=== PATIENT | female | born 1955 | race Two or more races ===

== ENCOUNTER 2018-11-09 10:26 | Emergency (ER) | payer MEDICARE, OTHER ==
[~2018-11-09] VITALS: Ht 152.4 cm; Wt 52.6 kg
[~2018-11-09 10:26] MED LIST: AMLODIPINE BESYL5 MG ORAL; ASPIRIN-LOW81 MG ORAL; CALCIUM600 M1 PO; CYCLOBENZAPRINE10 MG ORAL; LOFIBRA67 MG ORAL; PREMARIN VAG CR45 GM PV; SIMVASTATIN20 MG ORAL; TYLENOL650 MG/20. ORAL
[2018-11-09 11:23] VITALS: BP 130/59
[2018-11-09 12:37] LABS: BASOPHILS % (AUTO) 1.2 % (0.0-2.0); EOSINOPHILS % (AUTO) 2.9 % (0.0-3.0); HEMATOCRIT 32.9 % (37.0-47.0); HEMOGLOBIN 10.9 G/DL (12.0-16.0); LYMPHOCYTES % (AUTO) 29.2 % (20.0-45.0); MEAN CORPUSCULAR VOLUME 86 FL (80-99); MONOCYTES % (AUTO) 7.4 % (1.0-10.0); NEUTROPHILS % (AUTO) 59.3 % (45.0-75.0); PLATELET COUNT 249 K/UL (150-450); RED BLOOD COUNT 3.84 M/UL (4.20-5.40); RED CELL DISTRIBUTION WIDTH 12.8 % (11.6-14.8); WHITE BLOOD COUNT 5.4 K/UL (4.8-10.8)
[2018-11-09 12:44] LABS: ANION GAP 11 mmol/L (5-15); BLOOD UREA NITROGEN 15 mg/dL (7-18); CALCIUM 8.6 MG/DL (8.5-10.1); CARBON DIOXIDE 23 MMOL/L (21-32); CHLORIDE 106 MMOL/L (98-107); CREATININE 0.8 MG/DL (0.55-1.30); POTASSIUM 4.3 MMOL/L (3.5-5.1); SODIUM 140 MMOL/L (136-145)
[2018-11-09 12:49] LABS: ALANINE AMINOTRANSFERASE 29 U/L (12-78); ALBUMIN 3.2 G/DL (3.4-5.0); ALBUMIN/GLOBULIN RATIO 0.9 (1.0-2.7); ALKALINE PHOSPHATASE 84 U/L (46-116); ASPARTATE AMINO TRANSFERASE 22 U/L (15-37); BILIRUBIN,TOTAL 0.5 MG/DL (0.2-1.0)
[2018-11-09 13:24] VITALS: BP 135/56
--- NOTE | 2018-11-09 13:31 | Emergency Room Report ---
History of Present Illness General Chief Complaint: Multiple Trauma/Fall Source: Patient Present Illness HPI This patient states that she tripped and fell yesterday while she was out shopping around 3 PM yesterday afternoon. She states that she cut her hand on some glass. She did not get evaluated at that time. She states that she also has pain in her knees. She states that her tetanus shot is up-to-date. She denies head injury or trauma. She denies neck pain or chest pain. She denies abdominal pain. She denies back pain. She has no other complaints. Allergies: Coded Allergies: ACETAMINOPHEN (Verified Allergy, Mild, Itching, 11/09/18) IBUPROFEN (Verified Allergy, Unknown, Itching, Dizziness, 11/09/18) Patient History Past Medical History: see triage record, HTN, GERD Past Surgical History: hysterectomy, other - L. nephrectomy Social History: Denies: smoking, alcohol use, drug use Last Menstrual Period: na Reviewed Nursing Documentation: PMH: Agreed; PSxH: Agreed Nursing Documentation-PMH Past Medical History: No History, Except For Hx Cardiac Problems: Yes - anemia Hx Hypertension: Yes Hx Cancer: Yes - uterine Hx Gastrointestinal Problems: Yes - fatty liver Review of Systems All Other Systems: negative except mentioned in HPI Physical Exam Vital Signs Date Time Temp Pulse Resp B/P (MAP) Pulse Ox O2 Delivery O2 Flow Rate FiO2 11/09/18 10:47 98.1 75 18 134/66 98 Room Air Sp02 EP Interpretation: reviewed, normal General Appearance: no apparent distress, alert, GCS 15, non-toxic Head: normocephalic, atraumatic Eyes: bilateral eye normal inspection, bilateral eye PERRL ENT: hearing grossly normal, normal pharynx, no angioedema, normal voice Neck: full range of motion, supple/symm/no masses Respiratory: chest non-tender, lungs clear, normal breath sounds, no respiratory distress, no retraction, no accessory muscle use, speaking full sentences Cardiovascular #1: regular rate, rhythm, no edema Gastrointestinal: normal bowel sounds, non tender, soft, non-distended, no guarding, no rebound Rectal: deferred Musculoskeletal: back normal, normal range of motion, other - Bilateral knees ttp. No deformity, ecchymosis or joint effusion identified. Neurologic: alert, oriented x3, responsive, motor strength/tone normal, sensory intact, speech normal Psychiatric: judgement/insight normal, memory normal, mood/affect normal, no suicidal/homicidal ideation Skin: normal color, no rash, warm/dry, well hydrated Medical Decision Making Diagnostic Impression: Primary Impression: Fall Additional Impression: Laceration of hand ER Course This patient suffered a mechanical fall. She has a laceration on her right hand. This laceration is almost 24 hours old. The hand has a high infection rate and has a very poor outcome if it does become infected. Therefore, I will not close this wound. I will let the wound heal by secondary intention. I will treat the patient with a course of antibiotics for prophylaxis. The wound was irrigated and bacitracin was applied. The patient was placed in a splint to allow wound healing. There is no evidence of foreign body on exam or on x- ray. There is no evidence of fracture or other injury. The patient is given return precautions and follow-up instructions. Laboratory Tests Test 11/09/18 12:25 White Blood Count 5.4 K/UL (4.8-10.8) Red Blood Count 3.84 M/UL (4.20-5.40) L Hemoglobin 10.9 G/DL (12.0-16.0) L Hematocrit 32.9 % (37.0-47.0) L Mean Corpuscular Volume 86 FL (80-99) Mean Corpuscular Hemoglobin 28.4 PG (27.0-31.0) Mean Corpuscular Hemoglobin Concent 33.1 G/DL (32.0-36.0) Red Cell Distribution Width 12.8 % (11.6-14.8) Platelet Count 249 K/UL (150-450) Mean Platelet Volume 5.5 FL (6.5-10.1) L Neutrophils (%) (Auto) 59.3 % (45.0-75.0) Lymphocytes (%) (Auto) 29.2 % (20.0-45.0) Monocytes (%) (Auto) 7.4 % (1.0-10.0) Eosinophils (%) (Auto) 2.9 % (0.0-3.0) Basophils (%) (Auto) 1.2 % (0.0-2.0) Sodium Level 140 MMOL/L (136-145) Potassium Level 4.3 MMOL/L (3.5-5.1) Chloride Level 106 MMOL/L (98-107) Carbon Dioxide Level 23 MMOL/L (21-32) Anion Gap 11 mmol/L (5-15) Blood Urea Nitrogen 15 mg/dL (7-18) Creatinine 0.8 MG/DL (0.55-1.30) Estimate Glomerular Filtration Rate > 60 mL/min (>60) Glucose Level 86 MG/DL (74-106) Calcium Level 8.6 MG/DL (8.5-10.1) Total Bilirubin 0.5 MG/DL (0.2-1.0) Aspartate Amino Transferase (AST) 22 U/L (15-37) Alanine Aminotransferase (ALT) 29 U/L (12-78) Alkaline Phosphatase 84 U/L (46-116) Total Protein 6.7 G/DL (6.4-8.2) Albumin 3.2 G/DL (3.4-5.0) L Globulin 3.5 g/dL Albumin/Globulin Ratio 0.9 (1.0-2.7) L Other X-Ray Diagnostic Results Other X-Ray Diagnostic Results : X-Ray ordered: Hand xray, bilateral knee xrays # of Views/Limited Vs Complete: Complete Indication: Pain EP Interpretation: Yes Interpretation: no dislocation, no fractures, other - No fb Impression: No acute disease Electronically Signed by: Meron Navarro DO Last Vital Signs Date Time Temp Pulse Resp B/P (MAP) Pulse Ox O2 Delivery O2 Flow Rate FiO2 11/09/18 11:23 68 15 Room Air 11/09/18 11:23 98.1 130/59 100 Status: improved Disposition: HOME, SELF-CARE Condition: Improved Referrals: NOT CHOSEN IPA/,REFERRING (PCP) Meron Navarro DO Nov 09, 2018 13:31
[2018-11-09] MEDS: Acetaminophen 500mg (ES) tab ORAL ONE ×2 (13:39→13:40)
[2018-11-09] MEDS ORDERED: Hydrogen Peroxide 473ml Bottle TOPIC ONE (13:45)
[2018-11-09] MEDS ORDERED: Bacitracin Oint UD TOPIC ONE (13:45)
[2018-11-09] MEDS ORDERED: CEPHALEXIN500 MG ORAL (14:10)
[2018-11-09] MEDS ORDERED: LIDODERM700 M1 TOPIC (14:10)
[2018-11-09] MEDS ORDERED: Lidocaine 2% MPF 5ml Vial INJ ONE (14:29)
[2018-11-09] MEDS ORDERED: Lidocaine 2% 20mg/ml/Epi 0.005mg/ml 20ml vial INJ ONE (14:30)
--- NOTE | 2018-11-09 14:32 | Diagnostic Imaging Report ---
Indication: Pain, trauma Technique: 3 views right hand Comparison: none Findings: There is a triangular density adjacent to the base of the fifth metacarpal. This is slightly denser than adjacent bone. The adjacent cortex appears intact. No other acute fractures. No dislocations. There is degenerative narrowing of the second through fifth distal interphalangeal joints. The bones are osteoporotic. Impression: And density adjacent to the base of the fifth metacarpal. Given history of laceration, this could represent a foreign body. Given the density, fracture fragment deemed less likely. No acute bony trauma otherwise Degenerative changes, as described Osteoporotic changes Findings discussed by phone with Dr. Rodriguez in the emergency room at the time of interpretation
--- NOTE | 2018-11-09 14:45 | Diagnostic Imaging Report ---
Indication: Knee pain, status post trauma Technique: 4 views of the right knee Comparison: None Findings: There is mild medial compartmental degenerative joint space narrowing. The remaining joint spaces are preserved. There are medial anterolateral osteophytes. No suprapatellar effusion. No acute fractures. No dislocations. Impression: Degenerative changes, as described No acute bony trauma
--- NOTE | 2018-11-09 14:46 | Diagnostic Imaging Report ---
Indication: Trauma, pain Technique: 4 views of the left knee Comparison: None Findings: There is considerable narrowing of the medial joint compartment. There are medial and lateral osteophytes. No acute fractures. No dislocations. No radiopaque foreign body Impression: Degenerative changes, as described. No acute bony trauma
[2018-11-09 14:52] VITALS: BP 132/64
[2018-11-09 15:06] VITALS: BP 132/64
== END 2018-11-09 15:06 | disposition home or self-care (01) ==
LOC: EMR 12:07
DX: S61.411A Laceration without foreign body of right hand, initial encounter (principal); W19.XXXA Unspecified fall, initial encounter; Y92.89 Other specified places as the place of occurrence of the external cause; M25.562 Pain in left knee; M25.561 Pain in right knee; I10 Essential (primary) hypertension; Z88.6 Allergy status to analgesic agent; Z85.42 Personal history of malignant neoplasm of other parts of uterus
CPT/HCPCS: 29130; 36415; 80053; 85025; 99283